=== PATIENT | female | born 1930 | race Caucasian/White ===

== ENCOUNTER → 2016-10-03 | Outpatient (CLI) | payer OTHER ==
--- NOTE | 2016-10-03 18:21 | DX ---
DEXA Bone Mineral Densitometry Clinical Indications: Postmenopausal, screening for osteoporosis, post hysterectomy and hysterectomy , family history of osteoporosis in mother and grandmother, right wrist fracture Comparison: None Technique: Bone Mineral Densitometry (BMD) by Dual Energy X-Ray Absorptiometry (DEXA) was performed utilizing the Meridian scanner. The lumbar spine was evaluated in the AP projection. The bilat eral hips and forearm were evaluated in the AP projection. Vertebral fracture assessment was also pe rformed. AP Lumbar Spine: The L1 and L2 vertebral bodies were evaluated. L3 and L4 are excluded due to degen erative sclerosis. BMD: 0.874 gm/cm2 T-score: -2.5 SD Z-score: -0.5 SD AP Left Hip: Neck BMD: 0.767 gm/cm2 T-score: -1.9 SD Z-score: 0.5 SD AP Right Hip: Total BMD: 0.768 gm/cm2 T-score: -1.9 SD Z-score: 0.4 SD AP Left Forearm, 09/12: BMD: 0.535 gm/cm2 T-score: -3.9 SD Z-score: -0.7 SD Vertebral Fracture Assessment: No significant fracture deformity. Atherosclerotic calcification of t he abdominal aorta likely increases lumbar BMD. Conclusion: Considering the lowest measured site, the patient is osteoporotic and at increased risk for fracture. Since the forearm is the lowest measured site, it would be worthwhile to exclude hyperp arathyroidism. The ten year FRAX risk for any major osteoporotic fracture , which excludes the risk for a wrist frac ture, is 39% and for a hip fracture is 24.8%. Consider excluding secondary metabolic causes of bone loss (reported to be present in as many as 30% of patients with normal Z scores). Basic laboratory evaluation might include blood chemistries (calci um, phosphorus, alkaline phosphatase, liver function tests, creatinine, total protein), complete bloo d count, serum 25-OH- vitamin D3 level, 24-hour urine calcium, serum TSH and serum PTH. Targeted l aboratory testing based on individual patient circumstances might include serum electrophoresis (SPEP or UPEP), anti-tissue transglutaminase antibody levels (celiac disease) , serum bone specific alkal ine phosphatase, bone turnover markers (urine, serum) or fibroblast growth factor 23 (FGF 23)(evaluat e for unexplained osteomalacia). If secondary causes are excluded, then consider initiating treatment with a bisphosphonate (such as F osamax, Actonel or Boniva). If the patient is unable to use an oral bisphosphonate, another agent suc h as IV bisphosphonates (Boniva or Reclast), teriparatide (Forteo), a selective estrogen receptor mo dulator (Evista) or Denosumab ( anti RANKL monoclonal antibody) might be considered. If antiresorptive therapy is initiated and if clinically indicated, consider obtaining a baseline and 3 month followup bone resorption marker (NTX, CTX, TRAP5b or Pyridinoline, deoxypyridinoline) to mon itor the therapeutic effect. Supplementing an insufficient diet to achieve total intakes of 1500 mg calcium and 800 International Units of vitamin D daily should be considered. Osteoporosis prevention and treatment begins by modify ing risk factors. The patient should be encouraged to participate in a regular exercise program that includes weightbearing and muscle strengthening regimens, as is clinically appropriate. Recommend follow-up DEXA in one year to assess the efficacy of pharmacologic intervention and/or blanca ection of appropriate secondary cause.
== END ==
LOC: BRMIMAGING 11:10
DX: M81.0 Age-related osteoporosis without current pathological fracture (principal)